=== PATIENT | male | born 1955 | race Caucasian/White ===

== ENCOUNTER 2017-08-21 15:14 | Emergency (ER) | payer MEDICARE, BC, SELFPAY ==
[2017-08-21 15:15] VITALS: BP 133/68; PULSE 64; RESP 15; TEMP 36.7; O2SAT 97; BMI 24.1
--- NOTE | 2017-08-21 15:35 | ED.DCSUM_ITS ---
- ER Visit Summary Date of Service: 08/21/17 Chief Complaint: [] laceration to the anterior sorto left leg struck air- conditioner History of Present Illness: The patient is a 62 M [] rheumatoid arthritis on blood thinners prednisone reports he inadvertently struck the corner of a air- conditioner suffer a skin laceration was seen by his doctors they could not control the bleeding he was sent to the emergency room for evaluation his tetanus status is up-to-date he has no complaints is a very minor injury he does not believe he suffered any bony injury there is no chance of foreign body of his history Physical Examination: [] The head neck chest general physical exams unremarkable to the left lower extremity he has a 1 cm very superficial laceration appears to be over a superficial vein the bleeding is easily controlled with light pressure there is no signs of deep injury he has full range of motion of the knee ankle foot there is no tib-fib pain, no foreign bodies appreciated area sterilely prepped copious irrigated anesthetized examine no foreign body and was closed with felicia with good results he was instructed on wound care felicia out in 7-10 days there was no bleeding after we applied the dressing Test Results: [] Emergency Department Course and Treatment: [] Treatment Plan: [] Disposition: [] Home stable Impression: [] Millimeter left leg laceration This note was generated with [employer] dictation software. It may contain incorrect words, spelling, and punctuation that were not noted in review of the chart prior to signing ED Disposition - Plan for ED Patient: Chief Complaint: Laceration Referrals: Devi Granda MD [Primary Care Provider] -
--- NOTE | 2017-08-21 15:35 | ED.DEP ---
ED Disposition - Plan for ED Patient: Chief Complaint: Laceration Instructions: ED Laceration All Referrals: Devi Granda MD [Primary Care Provider] -
== END 2017-08-21 15:58 | disposition home or self-care (01) ==
LOC: ED 15:52
PROVIDERS: Emergency Provider Emergency Medicine; Family Provider Internal Medicine; PCP Internal Medicine
DX: S81.812A Laceration without foreign body, left lower leg, initial encounter (principal); W22.8XXA Striking against or struck by other objects, initial encounter; Y93.9 Activity, unspecified; Y92.9 Unspecified place or not applicable; M06.9 Rheumatoid arthritis, unspecified; Z79.52 Long term (current) use of systemic steroids; Z79.899 Other long term (current) drug therapy
CPT/HCPCS: 12001; 99282

== ENCOUNTER 2017-10-07 11:52 | Day surgery (SDC) | payer MEDICARE, BC, SELFPAY ==
[2017-10-07] VITALS (9 sets, daily range): BP systolic 88–103; BP diastolic 47–75; PULSE 51–79; RESP 18–19; TEMP 36.4–36.9; O2SAT 93–99; BMI 24.9
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
[2017-10-07] MEDS: Ipratropium/Albuterol Sulfate 3 ML AMPUL.NEB INHALATION (13:00)
--- NOTE | 2017-10-07 20:47 | PCM.OPRPT ---
Report of Operation Date of Procedure: 10/07/17 Pre-Operative Diagnosis: screening colonoscopy Post-Operative Diagnosis: normal screening colonoscopy Surgery/Procedure Performed:: colonoscopy order taker: None Type of Anesthesia:: MAC Anesthesiologist: Rahul Kruger - ASA3 Specimen's removed: none Description of Procedure: The patient was brought to the endoscopy suite. Sign in was performed verifying patient, site, planned procedure, critical nursing information, the patient was monitored with cardiac, pulse oximetric, and blood pressure monitoring devices. Monitored anesthetic care was provided for sedation. Following IV sedation the patient was positioned for colonoscopy. A digital rectal exam was performed which revealed no palpable abnormalities The video colonoscope was inserted and advanced to the cecum as verified by the ileocecal valve, cecal base anatomic features and palpation. as the scope was withdrawn, the cecum, ascending colon, hepatic flexure, transverse colon, splenic flexure, descending colon and rectosigmoid all appeared normal. The scope was retroflexed in the rectum. This was unremarkable. The patient tolerated the procedure well and was brought to recovery in stable condition. I recommended follow-up screening colonoscopy in 10 years.
--- NOTE | 2017-10-07 20:50 | OP.PCM_ITS ---
Report of Operation Date of Procedure: 10/07/17 Pre-Operative Diagnosis: screening colonoscopy Post-Operative Diagnosis: normal screening colonoscopy Surgery/Procedure Performed:: colonoscopy stitch bonding machine operator: None Type of Anesthesia:: MAC Anesthesiologist: Rahul Kruger - ASA3 Specimen's removed: none Description of Procedure: The patient was brought to the endoscopy suite. Sign in was performed verifying patient, site, planned procedure, critical nursing information, the patient was monitored with cardiac, pulse oximetric, and blood pressure monitoring devices. Monitored anesthetic care was provided for sedation. Following IV sedation the patient was positioned for colonoscopy. A digital rectal exam was performed which revealed no palpable abnormalities The video colonoscope was inserted and advanced to the cecum as verified by the ileocecal valve, cecal base anatomic features and palpation. as the scope was withdrawn, the cecum, ascending colon, hepatic flexure, transverse colon, splenic flexure, descending colon and rectosigmoid all appeared normal. The scope was retroflexed in the rectum. This was unremarkable. The patient tolerated the procedure well and was brought to recovery in stable condition. I recommended follow-up screening colonoscopy in 10 years.
== END 2017-10-07 17:26 | disposition home or self-care (01) ==
LOC: EN 11:57 → AC 11:57
PROVIDERS: Family Provider Internal Medicine; PCP Internal Medicine; Visit Provider Surgery
PROC: 0DJD8ZZ Inspection of Lower Intestinal Tract, Via Natural or Artificial Opening Endoscopic (ICD-10-PCS; CPT 45378; principal; 2017-10-07 12:55)
DX: Z12.11 Encounter for screening for malignant neoplasm of colon (principal); Z95.5 Presence of coronary angioplasty implant and graft; I25.10 Atherosclerotic heart disease of native coronary artery without angina pectoris; I25.2 Old myocardial infarction; J44.9 Chronic obstructive pulmonary disease, unspecified; N40.0 Benign prostatic hyperplasia without lower urinary tract symptoms; M06.9 Rheumatoid arthritis, unspecified; M79.7 Fibromyalgia; K21.9 Gastro-esophageal reflux disease without esophagitis; Z79.899 Other long term (current) drug therapy; Z79.02 Long term (current) use of antithrombotics/antiplatelets; Z79.51 Long term (current) use of inhaled steroids; F17.290 Nicotine dependence, other tobacco product, uncomplicated
CPT/HCPCS: G0121; 94640; J7120

== ENCOUNTER 2019-01-04 05:19 | Day surgery (SDC) | payer MEDICARE, BC, SELFPAY ==
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
[2019-01-04] VITALS (7 sets, daily range): BP systolic 81–110; BP diastolic 52–86; PULSE 59–63; RESP 16; TEMP 36.4–36.6; O2SAT 95–99; BMI 25.3
[2019-01-04] MEDS: Lactated Ringers 1,000 ML 100 ML IV (06:15)
--- NOTE | 2019-01-04 06:30 | EGD_PTH ---
PATIENT: WERNER SANTOS LOC: EN U#:[id number] AGE/SX: 63/M ROOM: RE01/04/[address]: Dr. Chi Arellano MD : 1955 BED: DIS: 01/04/2019 SPEC #: [id number] RECD: 01/04/19 09:46 STATUS: DASIA REPravin #: [id number] MACK: 01/04/19 06:[address]: Chi Arellano DEPT: SURGICAL PATHOLOGY RECD BY: Venkat Flood ENTERED: 01/04/19 11:41 SP TYPE: EGD BIOPSY OTHR DR: Dr. Devi Granda MD Tissues: A - Gastric mucous membrane B - Gastric mucous membrane C - Esophageal mucous membrane Procedures: Special Stain Group II Surgery Specimen Level IV Alcian Blue/PAS (control) HEADER OPERATION: EGD [place] [place] PRE-OP DIAGNOSIS: Dysphagia TISSUE SUBMITTED: A - Antral biopsy for H. pylori and pathology, B - GE junction biopsy, C - Mid esophageal biopsy MICROSCOPIC DIAGNOSIS A. Gastric antrum, biopsy: Minimal chronic inflammation. See comment. B. Gastroesophageal junction, biopsy: Fragment of benign squamous mucosa. No evidence of inflammation. See comment. C. Mid esophagus, biopsy: Fragment of benign squamous mucosa. No evidence of inflammation. AM:khanh 01/05/19 COMMENT A. The results of immunohistochemistry for Helicobacter pylori will be reported separately ([id number]). B. Glandular mucosa is not represented in the biopsy. Clinical correlation is suggested. Alcian blue/PAS stain with matched control supports the above diagnosis. MICROSCOPIC DESCRIPTION Slides are reviewed. GROSS DESCRIPTION A - Received in fixative is one container labeled with the patient's name and designated antral biopsy. The specimen consists of one irregular fragment of light ken soft tissue that measures 0.6 x 0.3 x 0.1 cm. The specimen is totally submitted in one cassette. B - Received in fixative is one container labeled with the patient's name and designated GE junction. The specimen consists of two irregular fragments of light ken soft tissue that in aggregate measure 0.1 x 0.1 x <0.1 cm. The specimen is totally submitted in one cassette. C - Received in fixative is one container labeled with the patient's name and designated mid esophageal biopsy. The specimen consists of one irregular fragment of light ken soft tissue that measures 0.6 x 0.2 x 0.1 cm. The specimen is totally submitted in one cassette. / AM:khanh 01/04/19 TC:3 CPT: 76222 x3, 95662
--- NOTE | 2019-01-04 06:30 | IMM_PTH ---
PATIENT: WERNER SANTOS LOC: EN U#:[id number] AGE/SX: 63/M ROOM: RE01/04/[address]: Dr. Chi Arellano MD : 1955 BED: DIS: 01/04/2019 SPEC #: [id number] RECD: 01/04/19 12:15 STATUS: DASIA REQ #: [id number] MACK: 01/04/19 06:[address]: Chi Arellano DEPT: IMMUNOHISTOCHEMISTRY RECD BY: Letitia Hunt ENTERED: 01/04/19 12:15 SP TYPE: IMMUNO OTHR DR: Dr. Devi Granda MD Tissues: A - Stomach, NOS Procedures: H Pylori (initial) PHYSICIAN & INSTITUTION [place] [id number] SPECIMEN INFORMATION: Tissue Source: A - Antral biopsy Clinical Info: Dysphagia Specimen Number: [id number] CPT code: 28697 METHODOLOGY: Deparaffinized sections of prefer/formalin-fixed tissue or PAP/DQ stained slides are incubated with monoclonal/polyclonal antibodies/oligonucleotide probes. Localization is made via biotin free immunoperoxidase method. Appropriate controls are performed and reacted as expected. Results on target cell population are indicated in the following table: RESULTS: ANTIBODY / CLONE RESULT Block A H Pylori (polyclonal) negative These tests were developed and their performance characteristics determined by [facility]. They may not have been cleared or approved by the U.S. Food and Drug Administration. The FDA has determined that such clearance or approval is not necessary. INTERPRETATION: A. Antral biopsy: Negative for Helicobacter pylori organisms. AM:khanh 01/05/19
--- NOTE | 2019-01-04 06:51 | OP.ENDO_ITS ---
01/04/2019 Devi Granda [address] [phone] Re : Upper GI endoscopy procedure for Ronny Bennett Dear Dr. Granda This procedure was performed on Friday, January 04, 2019. My impressions and recommendations are as follows: Impressions : - Normal examined jejunum. - Normal third portion of the duodenum. - Duodenitis. - Gastritis. Biopsied. - Normal gastroesophageal junction. - Non-severe reflux esophagitis. Biopsied. - Benign-appearing esophageal stenosis. - Normal middle third of esophagus. Biopsied. Recommendations : - Resume previous diet. - Continue present medications. - Return to physician chef assistant in 1 week. My findings are described in the full procedure note, which is enclosed. If I can be of further assistance, please feel free to contact me at Doctor phone number(s): , Work: . Sincerely, Chi Arellano MD 01/04/2019 6:51:35 AM This report has been signed electronically.
== END 2019-01-04 07:38 | disposition home or self-care (01) ==
LOC: EN 05:20 → AC 05:22
PROVIDERS: Family Provider Internal Medicine; PCP Internal Medicine; Referring Provider Internal Medicine; Visit Provider Surgery
PROC: 0DJ08ZZ Inspection of Upper Intestinal Tract, Via Natural or Artificial Opening Endoscopic (ICD-10-PCS; CPT 43235; principal; 2019-01-04 06:25)
DX: K29.70 Gastritis, unspecified, without bleeding (principal); K21.0 Gastro-esophageal reflux disease with esophagitis; K22.2 Esophageal obstruction; F41.9 Anxiety disorder, unspecified; I25.10 Atherosclerotic heart disease of native coronary artery without angina pectoris; J44.9 Chronic obstructive pulmonary disease, unspecified; M79.7 Fibromyalgia; M06.9 Rheumatoid arthritis, unspecified; M81.0 Age-related osteoporosis without current pathological fracture; I25.2 Old myocardial infarction; I10 Essential (primary) hypertension; G25.81 Restless legs syndrome; E78.00 Pure hypercholesterolemia, unspecified; F32.9 Major depressive disorder, single episode, unspecified; Z95.5 Presence of coronary angioplasty implant and graft; Z79.82 Long term (current) use of aspirin; Z79.02 Long term (current) use of antithrombotics/antiplatelets; Z79.899 Other long term (current) drug therapy; F17.290 Nicotine dependence, other tobacco product, uncomplicated
CPT/HCPCS: 43239; 88305; 88313; 88342; J7120; J2405